=== PATIENT | male | born 1950 | race Caucasian/White ===

== ENCOUNTER 2018-10-12 17:26 | Day surgery (SDC) | payer MEDICARE, OTHER ==
[~2018-10-12] VITALS: Ht 182.9 cm; Wt 83.5 kg
[2018-10-12] MEDS ORDERED: LIPITOR 10MG10 MG PO (18:20)
[2018-10-12] MEDS ORDERED: PLAVIX 75MG TAB75 MG PO (18:20)
[2018-10-12] MEDS ORDERED: GLUCOPHAGE1000 MG PO (18:20)
[2018-10-12] MEDS ORDERED: B-12 500 MCG PO (18:21)
[2018-10-12] MEDS ORDERED: ZESTRIL 20MG TA20 MG PO (18:21)
[2018-10-12] MEDS ORDERED: FLOMAX 0.40.4 MG/CAP PO (18:21)
[2018-10-12 18:22] VITALS: BP 120/63; PULSE 81; TEMP 98.1
[2018-10-12] MEDS ORDERED: LANTUS100 U/ML SQ (18:22)
[2018-10-12 19:50] VITALS: BP 125/52; PULSE 91; TEMP 98.2
[2018-10-12 22:00] VITALS: BP 112/61; PULSE 75; TEMP 98.2
[2018-10-13] VITALS (13 sets, daily range): BP systolic 95–142; BP diastolic 47–79; PULSE 65–81; TEMP 97.9–99.2
[2018-10-14 04:14] VITALS: BP 93/48; PULSE 76; TEMP 97.9
[2018-10-14 07:37] VITALS: BP 93/44; PULSE 74; TEMP 98.3
== END 2018-10-14 11:13 | disposition home or self-care (01) ==
LOC: SURG 17:26 → SDCO 17:26 → SURG 17:27 → SDCO 10-14 11:13
DX: C67.2 Malignant neoplasm of lateral wall of bladder (principal); E78.00 Pure hypercholesterolemia, unspecified; I10 Essential (primary) hypertension; F17.210 Nicotine dependence, cigarettes, uncomplicated; I25.10 Atherosclerotic heart disease of native coronary artery without angina pectoris; J44.9 Chronic obstructive pulmonary disease, unspecified; E11.42 Type 2 diabetes mellitus with diabetic polyneuropathy; Z79.02 Long term (current) use of antithrombotics/antiplatelets; Z79.4 Long term (current) use of insulin; Z88.1 Allergy status to other antibiotic agents; Z88.0 Allergy status to penicillin; Z83.3 Family history of diabetes mellitus; Z82.49 Family history of ischemic heart disease and other diseases of the circulatory system
CPT/HCPCS: OP; C1769; C2617; J0690; J1815; J2405; J2704; J3010; J7030; J7120

== ENCOUNTER 2018-10-30 08:49 | Outpatient (RCR) | payer MEDICARE, OTHER ==
[~2018-10-30] VITALS: Ht 182.9 cm; Wt 84.0 kg
[~2018-10-30 08:49] MED LIST: B-12 500 MCG PO; FLOMAX 0.40.4 MG/CAP PO; GLUCOPHAGE1000 MG PO; LANTUS100 U/ML SQ; LIPITOR 10MG10 MG PO; PLAVIX 75MG TAB75 MG PO; ZESTRIL 20MG TA20 MG PO
--- NOTE | 2018-10-30 09:00 | NUR ---
Here for cares. PICC intact right upper arm with sterile dressing change done with insertion site cleansed with chloraprep x 1, chlorhexidine impregnated disk applied, skin prep, stat lock, and tegaderm applied. no signs or symptoms of IV complications noted. no concerns voiced. to return next week for cares. voiced understanding of instructions.
[2018-10-30 09:07] VITALS: BP 137/61; PULSE 81; TEMP 97.6
--- NOTE | 2018-11-03 15:52 | NUR ---
Pt's called this nurse and reports picc line removed by Dr hare.Message left for STU wilson.
== END 2018-11-03 15:53 | disposition home or self-care (01) ==
LOC: EUO 08:49
DX: C67.9 Malignant neoplasm of bladder, unspecified (principal)

== ENCOUNTER 2018-12-24 08:30 | Inpatient (IN) | payer MEDICARE, OTHER ==
[~2018-12-24] VITALS: Ht 185.4 cm; Wt 84.0 kg
[2019-02-01 08:59] LABS: HEMATOCRIT 38.9 % (42.0-52.0); HEMOGLOBIN 12.2 g/dl (13.5-18.0); MEAN CELL VOLUME 81 fl (80.0-100.0); MEAN CORPUSCULAR HEMOGLOBIN 26 pg (27.0-31.0); MEAN CORPUSCULAR HGB CONC 31 g/dl (33.0-37.0); MEAN PLATELET VOLUME 9.6 fl (7.4-10.4); PLATELET COUNT 245 K/mm3 (130-400); RED BLOOD COUNT 4.78 M/mm3 (4.20-5.60); REDCELL DISTRIBUTION WIDTH-CV 23.5 % (11.5-14.5)
[2019-02-01 09:19] LABS: BILIRUBIN,TOTAL 0.2 mg/dL (0.0-1.0); CALCIUM 8.8 mg/dL (8.4-10.2); CREATININE, serum 0.71 (0.66-1.25); POTASSIUM 4.5 mmol/L (3.4-5.0); TOTAL PROTEIN 6.6 gm/dL (6.4-8.2)
[2019-02-02 07:00] VITALS: BP 144/87; PULSE 84; TEMP 98.9
[2019-02-02] MEDS ORDERED: FLOMAX 0.40.4 MG/CAP PO (07:11)
[2019-02-02] MEDS ORDERED: PRINIVIL20 MG PO (07:11)
[2019-02-02] MEDS ORDERED: LANTUS SOLOS100 U/ML SQ (07:11)
[2019-02-02] MEDS ORDERED: LIPITOR 10MG10 MG PO (07:12)
[2019-02-02] MEDS ORDERED: GLUCOPHAGE1000 MG PO (07:12)
[2019-02-02] MEDS ORDERED: MAG-OX 400400 MG/TAB PO (07:12)
[2019-02-02] MEDS ORDERED: NATURAL IRON65 MG PO (07:13)
[2019-02-02] MEDS ORDERED: VITAMINC500CH PO (07:13)
[2019-02-02] MEDS ORDERED: B-121000 MCG PO (07:13)
[2019-02-02 13:31] LABS: HEMOGLOBIN 11.1 g/dl (13.5-18.0); MEAN CELL VOLUME 82 fl (80.0-100.0); MEAN CORPUSCULAR HEMOGLOBIN 26 pg (27.0-31.0); MEAN CORPUSCULAR HGB CONC 32 g/dl (33.0-37.0); MEAN PLATELET VOLUME 9.7 fl (7.4-10.4); PLATELET COUNT 224 K/mm3 (130-400); RED BLOOD COUNT 4.28 M/mm3 (4.20-5.60); REDCELL DISTRIBUTION WIDTH-CV 23.4 % (11.5-14.5)
[2019-02-02 13:32] LABS: HEMATOCRIT 34.9 % (42.0-52.0)
[2019-02-02 13:42] LABS: CALCIUM 8.2 mg/dL (8.4-10.2); CREATININE, serum 0.75 (0.66-1.25); POTASSIUM 4.8 mmol/L (3.4-5.0)
[2019-02-02 14:25] LABS: BAND 11 % (0-10); LYMPHOCYTE 2 % (20.0-51.0); NEUTROPHILS 79 % (42.0-75.2)
[2019-02-02 14:30] LABS: PLATELET ESTIMATE NORMAL (NORMAL)
[2019-02-02 14:31] LABS: ANISOCYTOSIS 3+; OVALOCYTES 1+; SCHISTOCYTES 2+
--- NOTE | 2019-02-02 15:00 | NUR ---
Patient alert and oriented, answers questions appropriately. See assessment. Abdomen with midline incision, edges well approximated, vanessa intact. HANNAH to LUQ, compressed, serosanguinous drainage noted. Urostomy/ileal conduit site to RUQ with stoma pink and protruding, stents in place, clear yellow urine draining. Rosas catheter in place and draining red drainage. SCD on. Epidural in place to lumbar spine, dressing CDI. PCEA settings verfiifed against MAR. No c/o numbness or tingling to BLE, neuros intact. No c/o at this time.
--- NOTE | 2019-02-02 19:30 | NUR ---
PATIENT RESTING IN BED DURING SHIFT CHANGE REPORT FROM DAY SHIFT NURSE. EPIDURAL INFUSING, IVF VIA PORTACATH INFUSING WITH NO PROBLEMS, NEXT BAG OF IVF AVAILABLE IN ROOM. PATIENT WITHOUT ANY NEEDS OR CONCERNS. HSIEH DRAINING RED TINGED URINE, NO CLOTS OBSERVED DURING REPORT. ILEAL CONDUIT DRAINING YELLOW OUTPUT. HANNAH DRAIN PATENT, DRAINING RED DRAINAGE AND COMPRESSED.
[2019-02-02 19:52] VITALS: BP 106/57; PULSE 73; TEMP 99.1
[2019-02-02 20:00] VITALS: BP 106/57; PULSE 73; TEMP 99.1
--- NOTE | 2019-02-02 23:00 | NUR ---
PATIENT RESTING IN BED WITH NO NEEDS REPORTED, DENIES PAIN, EPIDURAL INFUSING WITHOUT PROBLEMS.
[2019-02-03] VITALS (8 sets, daily range): BP systolic 96–123; BP diastolic 45–60; PULSE 68–88; TEMP 98.4–99.1
--- NOTE | 2019-02-03 01:00 | NUR ---
PATIENT RESTING IN BED WITH EYES CLOSED, DOES NOT AROUSE WHEN ROOM ENTERED. BREATHING NONLABORED AND EVEN. IVF INFUSING WITHOUT PROBLEMS VIA PORTACATH. EPIDURAL INFUSION CONTINUES.
--- NOTE | 2019-02-03 04:14 | NUR ---
EPIDURAL INFUSION CONTINUES WITHOUT PROBLEMS. BREATHING NONLABORED AND EVEN. IVF INFUSION CONTINUES VIA PORTACATH. HSIEH CONTINUES TO DRAIN RED TINGED URINE AND ILEAL CONDUIT TO DD DRAINING YELLOW OUTPUT. HANNAH DRAIN COMPRESSED AND INTACT, DRAINING RED DRAINAGE.
[2019-02-03 07:11] LABS: HEMOGLOBIN 10.1 g/dl (13.5-18.0); MEAN CELL VOLUME 82 fl (80.0-100.0); MEAN CORPUSCULAR HEMOGLOBIN 26 pg (27.0-31.0); MEAN CORPUSCULAR HGB CONC 32 g/dl (33.0-37.0); MEAN PLATELET VOLUME 9.7 fl (7.4-10.4); PLATELET COUNT 210 K/mm3 (130-400); RED BLOOD COUNT 3.89 M/mm3 (4.20-5.60); REDCELL DISTRIBUTION WIDTH-CV 23.7 % (11.5-14.5)
--- NOTE | 2019-02-03 07:11 | NUR ---
Patient resting quietly in bed during shift change report given to day shift nurse.
[2019-02-03 07:12] LABS: HEMATOCRIT 31.8 % (42.0-52.0)
[2019-02-03 07:21] LABS: CALCIUM 8.2 mg/dL (8.4-10.2); CREATININE, serum 0.77 (0.66-1.25); MAGNESIUM 1.6 mg/dL (1.6-2.3); POTASSIUM 4.1 mmol/L (3.4-5.0)
[2019-02-03 07:46] LABS: BAND 6 % (0-10); EOSINOPHIL 1 % (0-4); LYMPHOCYTE 28 % (20.0-51.0); METAMYELOCYTE 1 % (0-0); MYELOCYTE 1 % (0-0); NEUTROPHILS 63 % (42.0-75.2)
[2019-02-03 07:47] LABS: PLATELET ESTIMATE NORMAL (NORMAL)
--- NOTE | 2019-02-03 09:12 | NUR ---
Initial visit; Patient thanked [employer] for looking in on him and offering spiritual care. Patient has a support system at their home in [place].
--- NOTE | 2019-02-03 10:03 | NUR ---
Rosas catheter dc'd per drs order at this time.
--- NOTE | 2019-02-03 10:20 | NUR ---
Patient alert and oriented, answers questions appropriately. See assessment. Abdomen soft, non tender, non distended. Bowel sounds active x4 quads. +Flatus. Midline incision with vanessa intact, no redness or drainage noted. HANNAH to LUQ compressed, serosanguinous drainage noted. Urostomy/ileal conduit with stoma pink and protruding, stents remain in place. Epidural catheter in place to lumbar spine, no redness or drainage noted to site. PCEA settings verified against MAR. No c/o numbness or tingling noted to BLE, neuros intact. No c/o at this time.
--- NOTE | 2019-02-03 10:26 | NUR ---
Ileal conduit flushed per order by Anthony CRAIG
--- NOTE | 2019-02-03 11:15 | NUR ---
SW met with the patient to discuss discharge plan. The patient lives in [place] with his , Nette (ph#[phone]). He reports independence with ADLs and does not have any DME. The patient's PCP is Dr. Andreia Odell and he receives his medications at [facility]. He reports no difficulties obtaining his meds. The patient does not have advanced directives and he was not interested in completing them at this time. The patient plans to return home with his upon discharge. No additional needs at this time.
[2019-02-03] MEDS ORDERED: PLAVIX 75MG TAB75 MG PO (15:28)
--- NOTE | 2019-02-03 19:35 | NUR ---
Sitting up in bed, family at bedside. Denies pain. Mid abd incision with edges well approximated, vanessa intact. HANNAH drain compressed with small amount of bloody discharge. Ileoconduit right abd moist and pink with pouch intact. Patient denies any further needs at this time.
--- NOTE | 2019-02-03 20:10 | NUR ---
Flushed both ileo conduit ports with 10mL saline without difficulty. Pouch reapplied. Patient tolerates well.
--- NOTE | 2019-02-04 00:08 | NUR ---
Lying in bed with eyes closed. Eyes open when enter room. HANNAH drain drained at this time, 60mL bloody discharge removed. Patient explains that he is having some gas cramps in his stomach but not really having pain. Patient denies further needs at this time.
[2019-02-04 03:34] VITALS: BP 130/68; PULSE 79; TEMP 98.6
--- NOTE | 2019-02-04 05:41 | NUR ---
Lying in bed with eyes closed. Eyes open when enter room. Denies pain in stomach but still has some soreness in abd area. Encouraged patient to use epidural to help alleviate pain. Ileoconduit patent draining clear yellow urine. Patient denies further needs at this time.
[2019-02-04 08:32] LABS: BASO % 0.2 % (0.0-2.0); EOS # 0.1 (0.0-0.7); EOS % 1.1 % (0-4.0); GRAN % 75.1 % (42.2-75.2); HEMOGLOBIN 10.1 g/dl (13.5-18.0); LYMPH # 1.4 (1.2-3.4); LYMPH % 12.8 % (20.0-51.0); MEAN CELL VOLUME 83 fl (80.0-100.0); MEAN CORPUSCULAR HEMOGLOBIN 26 pg (27.0-31.0); MEAN CORPUSCULAR HGB CONC 31 g/dl (33.0-37.0); MEAN PLATELET VOLUME 9.8 fl (7.4-10.4); MONO # 1.1 (0.1-0.6); MONO % 10.4 % (1.7-9.3); PLATELET COUNT 187 K/mm3 (130-400); RED BLOOD COUNT 3.94 M/mm3 (4.20-5.60); REDCELL DISTRIBUTION WIDTH-CV 23.5 % (11.5-14.5)
[2019-02-04 08:40] VITALS: BP 124/56; PULSE 82; TEMP 98.6
[2019-02-04 08:40] LABS: HEMATOCRIT 32.6 % (42.0-52.0)
[2019-02-04 08:42] LABS: CALCIUM 7.9 mg/dL (8.4-10.2); CREATININE, serum 0.68 (0.66-1.25); POTASSIUM 3.7 mmol/L (3.4-5.0)
--- NOTE | 2019-02-04 11:50 | NUR ---
Assessment completed, alert/oriented, vital signs stable, reports pain is controlled with Epidural/ having some gas cramps , encouraged to ambulate to increase motility, abd is soft and BS+, tolerating CL diet without N/V or increased pain, lungs CTA/ no resp.difficulty noted, heart RRR/distal pulses are palpable, denies other needs at this time
[2019-02-04 12:58] VITALS: BP 120/60; PULSE 88; TEMP 98.7
[2019-02-04 16:47] VITALS: BP 118/59; PULSE 89; TEMP 98.4
--- NOTE | 2019-02-04 19:20 | NUR ---
Lying in bed with eyes open. Rates pain in abd 2/10 and describes as gas type pains. Has not been able to pass gas. Bowel sounds active x4 quads. Midline abd incision with vanessa intact, edges well approximated, no redness/swelling/edema noted. Ileal conduit patent draining clear yellow urine. HANNAH drain on left abd with bag intact and draining serosanguinous fluid. Patient denies needs at this time.
[2019-02-04 20:08] VITALS: BP 126/59; PULSE 85; TEMP 98.6
--- NOTE | 2019-02-04 20:10 | NUR ---
SpO2 ;rae; 88% on room air. Applied oxygen at 1L/NC.
--- NOTE | 2019-02-04 20:18 | NUR ---
SpO2 92% on 1L/NC. Will continue oxygen at this time. Ileo conduit flushed at this time without difficulty. Patient denies any needs.
[2019-02-04 23:12] VITALS: BP 116/65; PULSE 83; TEMP 99.2
[2019-02-05 03:15] VITALS: BP 128/63; PULSE 78; TEMP 99.1
--- NOTE | 2019-02-05 03:38 | NUR ---
Lying in bed with eyes closed. Eyes open when enter room. Explains that his pain is still controlled with the epidural at this time. HANNAH continues to have serosanguinous drainage into dependent drainage bag, emptied 30mL at this time. Ileal conduit continues to drain yellow urine. Mid abd incision with edges well approximated, vanessa all intact, no redness/drainage/edema noted. Patient denies any further needs at this time.
[2019-02-05 07:32] VITALS: BP 126/66; PULSE 93; TEMP 98.2
[2019-02-05 11:48] VITALS: BP 122/65; PULSE 112; TEMP 99.2
[2019-02-05 15:08] VITALS: BP 124/66; PULSE 101; TEMP 98.2
[2019-02-05 20:39] VITALS: BP 103/68; PULSE 104; TEMP 97.8
--- NOTE | 2019-02-05 20:45 | NUR ---
PATIENT SITTING AT EDGE OF BED, EPIDURAL REMOVED EARLIER TODAY. REPORTS PAIN TO BACK AND ABDOMEN 6/10. MEDICATED WITH HS MEDS AND IV MORPHINE FOR PAIN. HANNAH DRAIN EMPTIED FOR 200CC OF SERO-SANGUINOUS FLUID. UROSTOMY WITH ROSEANNE URINE WITH SEDIMENT PRESENT. IS NPO. BOWEL SOUNDS PRESENT. IVF INFUSING TO RIGHT PAC, SL TO LEFT WRIST. DENIES N/V.
[2019-02-06] VITALS (7 sets, daily range): BP systolic 112–145; BP diastolic 62–78; PULSE 81–97; TEMP 97.6–98.3
--- NOTE | 2019-02-06 00:36 | NUR ---
REPORTS PAIN HAS RETURNED TO ABDMEN AND BACK 06/03. IV MORPHINE 2MG GIVEN AT THIS TIME.
--- NOTE | 2019-02-06 04:30 | NUR ---
Patient rates pain 2/10. Scheduled ES Tylenol given. NS infusing without problem to right PAC.
[2019-02-06 07:31] LABS: BASO % 0.2 % (0.0-2.0); EOS # 0.3 (0.0-0.7); EOS % 2.6 % (0-4.0); GRAN # 9.2 (1.4-6.5); HEMOGLOBIN 11.1 g/dl (13.5-18.0); LYMPH # 1.5 (1.2-3.4); LYMPH % 12.3 % (20.0-51.0); MEAN CELL VOLUME 81 fl (80.0-100.0); MEAN CORPUSCULAR HEMOGLOBIN 26 pg (27.0-31.0); MEAN CORPUSCULAR HGB CONC 32 g/dl (33.0-37.0); MEAN PLATELET VOLUME 10.1 fl (7.4-10.4); MONO # 1.2 (0.1-0.6); MONO % 9.4 % (1.7-9.3); PLATELET COUNT 222 K/mm3 (130-400); RED BLOOD COUNT 4.34 M/mm3 (4.20-5.60); REDCELL DISTRIBUTION WIDTH-CV 22.2 % (11.5-14.5)
[2019-02-06 07:36] LABS: CALCIUM 8.3 mg/dL (8.4-10.2); CREATININE, serum 0.69 (0.66-1.25); POTASSIUM 3.6 mmol/L (3.4-5.0)
--- NOTE | 2019-02-06 08:00 | NUR ---
Patient in bed resting. Alert and oriented x 3. Assessment complete. Patient has Ileal conduit to RLQ with stent, draining mckay colored urine. HANNAH to LLQ to ostomy bag with serous fluid draining. Midline incision with edges well approximated. INT to left forarm. Port to right chest with fluids infusing per orders. Denies further needs at this time.
--- NOTE | 2019-02-06 11:50 | NUR ---
Patient ambulating in halls with daughter, steady gait. AMbulated >200ft.
--- NOTE | 2019-02-06 14:57 | NUR ---
Patient has been doing well throughout the day. Up ambulating in halls, continues to have large amount of output from HANNAH drain. Denies pain at this time. Denies passing gas. Will report off to Demetra PERAZA.
--- NOTE | 2019-02-06 18:45 | NUR ---
Passing large amounts flatus after suppository. No c/o pain. Dr. Rangel notified. Started on po fluids slowly.
--- NOTE | 2019-02-06 22:46 | NUR ---
PT IN BED. PT STATES HE'S NOT REALLY HAVING ANY PAIN. NO N/V. HANNAH DRAINAGE AN ORANGE-THALIA/PINK COLOR. ILEAL CONDUIT PATENT, COLLECTION DEVICE INTACT. PT PASSING GAS.
[2019-02-07 04:00] VITALS: BP 143/63; PULSE 104; TEMP 98
--- NOTE | 2019-02-07 06:46 | NUR ---
PT HAS HAD SEVERAL LOOSE STOOLS DURING THE NIGHT. PT INFORMED STAFF THIS MORNING THAT HE HAS BEEN EMPTYING HIS HANNAH DRAIN WITHOUT COLLECTING OR MEASURING THE OUTPUT.
[2019-02-07 07:03] LABS: HEMOGLOBIN 10.5 g/dl (13.5-18.0); MEAN CELL VOLUME 82 fl (80.0-100.0); MEAN CORPUSCULAR HEMOGLOBIN 26 pg (27.0-31.0); MEAN CORPUSCULAR HGB CONC 32 g/dl (33.0-37.0); MEAN PLATELET VOLUME 10.2 fl (7.4-10.4); PLATELET COUNT 256 K/mm3 (130-400); RED BLOOD COUNT 4.04 M/mm3 (4.20-5.60); REDCELL DISTRIBUTION WIDTH-CV 22.4 % (11.5-14.5)
[2019-02-07 07:08] LABS: CALCIUM 8.2 mg/dL (8.4-10.2); CREATININE, serum 0.7 (0.66-1.25); POTASSIUM 4.2 mmol/L (3.4-5.0)
[2019-02-07 09:00] VITALS: BP 127/58; PULSE 89; TEMP 98.3
[2019-02-07 11:23] LABS: BAND 2 % (0-10); LYMPHOCYTE 4 % (20.0-51.0); NEUTROPHILS 88 % (42.0-75.2)
[2019-02-07 11:24] LABS: OVALOCYTES 1+; PLATELET ESTIMATE NORMAL (NORMAL)
[2019-02-07 12:19] VITALS: BP 119/59; PULSE 87; TEMP 98.6
[2019-02-07 15:45] VITALS: BP 126/52; PULSE 89; TEMP 98.2
--- NOTE | 2019-02-07 18:00 | NUR ---
Minimal pain relieved with scheduled meds. Diet advanced. Tolerated well. Having less loose stools throughout shift. Good urinary output per urostomy. Less HANNAH drainage this shift. CT scan done.
[2019-02-07 19:24] VITALS: BP 130/63; PULSE 86; TEMP 98.6
--- NOTE | 2019-02-07 20:00 | NUR ---
Report received. Assumed care for operation shift supervisor. A&Ox3. Assessment complete. VS stable. Portacath to right chest infusing NS@75mls/hr. INT to left FA-flushes without difficulty. Tolerating PO. Denies nausea/shortness of breath. +flatus. Midline incision-vanessa intact-edges well approximated. Drain to left lower quadrant with serosanguineous fluid. Urostomy draining yellow urine with some sediment present. Plan of care discussed for HS insulin dosing as well as q6h bedside glucoses. Verbalizes understanding. Encouraged to call for questions/concerns/increased pain. Call light in reach. Will monitor.
[2019-02-07 23:23] VITALS: BP 115/55; PULSE 85; TEMP 98
[2019-02-08 04:00] VITALS: BP 1126/62; PULSE 77; TEMP 97.9
[2019-02-08 06:20] LABS: BASO % 0.2 % (0.0-2.0); EOS # 0.5 (0.0-0.7); GRAN # 9.8 (1.4-6.5); LYMPH # 1.6 (1.2-3.4); MEAN CELL VOLUME 82 fl (80.0-100.0); MEAN CORPUSCULAR HGB CONC 32 g/dl (33.0-37.0); MEAN PLATELET VOLUME 9.7 fl (7.4-10.4); MONO # 1.1 (0.1-0.6); MONO % 8.4 % (1.7-9.3); PLATELET COUNT 227 K/mm3 (130-400); RED BLOOD COUNT 3.53 M/mm3 (4.20-5.60); REDCELL DISTRIBUTION WIDTH-CV 22.7 % (11.5-14.5)
[2019-02-08 06:26] LABS: HEMOGLOBIN 9.3 g/dl (13.5-18.0); MEAN CORPUSCULAR HEMOGLOBIN 26 pg (27.0-31.0)
[2019-02-08 06:32] LABS: CALCIUM 7.8 mg/dL (8.4-10.2); CREATININE, serum 0.65 (0.66-1.25); POTASSIUM 3.4 mmol/L (3.4-5.0)
[2019-02-08 07:52] VITALS: BP 140/69; PULSE 79; TEMP 98.1
--- NOTE | 2019-02-08 09:46 | NUR ---
The patient is to discharge back home with his today, 02/08. SW met with the patient to present and explain the IM form. The patient verbalized understanding, signed, and he was provided a copy. The patient had no other questions or concerns for SW about discharge. No additional needs at this time.
[2019-02-08 11:41] VITALS: BP 133/71; PULSE 82; TEMP 98
--- NOTE | 2019-02-08 11:57 | NUR ---
Patient ready for discharge- urology & hospitalist rounded & saw patient. Orders received. Int DC & port deaccessed. Patient showered. Ostomy care provided. New appliance spoke with Orly Lundberg. Midline open to air. Drain removed. He tolerated well. Script for norco & colace sent with patient. Medication list & changes made & last dose taken discussed. medication safety reviewed. He is aware of follow up labs & appts needed. Patient ambulated out with all belongings. family memebers taking him home.
== END 2019-02-08 12:07 | disposition home or self-care (01) | DRG 654 ==
LOC: INPTSU 02-02 05:48 → SURG 02-02 07:45
PROVIDERS: Hospitalist; Physician Assistant; ADMIT Urology
PROC: 0DTJ0ZZ Resection of Appendix, Open Approach (ICD-10-PCS; 2019-02-02)
PROC: 0T180ZC Bypass Bilateral Ureters to Ileocutaneous, Open Approach (ICD-10-PCS; 2019-02-02)
PROC: 0T780DZ Dilation of Bilateral Ureters with Intraluminal Device, Open Approach (ICD-10-PCS; 2019-02-02)
PROC: 0TTB0ZZ Resection of Bladder, Open Approach (ICD-10-PCS; principal; 2019-02-02 07:45)
DX: C67.9 Malignant neoplasm of bladder, unspecified (principal); K56.7 Ileus, unspecified; I25.10 Atherosclerotic heart disease of native coronary artery without angina pectoris; E11.42 Type 2 diabetes mellitus with diabetic polyneuropathy; D50.9 Iron deficiency anemia, unspecified; J44.9 Chronic obstructive pulmonary disease, unspecified; Z79.4 Long term (current) use of insulin; Z92.21 Personal history of antineoplastic chemotherapy; G89.29 Other chronic pain; E78.5 Hyperlipidemia, unspecified; Z88.0 Allergy status to penicillin; I95.81 Postprocedural hypotension; Z95.5 Presence of coronary angioplasty implant and graft
CPT/HCPCS: 99222; 99231-AI; 99232-AI; A4314; A9284; C2617; J0690; J1100; J1644; J1650; J1815; J2250; J2270; J2405; J2704; J2765; J3010; J7030; Q9967